=== PATIENT | female | born 1985 | race Caucasian/White ===

== ENCOUNTER 2019-03-11 14:32 | Emergency (ER) | payer SELFPAY ==
[~2019-03-11] VITALS: Ht 162.6 cm; Wt 63.5 kg
[~2019-03-11 14:32] MED LIST: ALBU90OI INH; ALBU90OI61 INH; Amoxicillin500 MG PO; CODGUAEL PO; Cyclobenzaprine5 MG PO; DOCU100 PO; HYDR1TAB94 PO; IBUP800 PO; METPRE4DP PO; Monodox100 MG PO; Mucinex600 MG PO; Naprosyn500 MG PO; PROCODE120 PO; Prednisone20 MG PO; Robaxin-750750 MG PO; SPACE CHAMBER1 EACH MC; Ultram50 MG PO; Ventolin/Prove6.7 GM INH; Verotin-Gr Cap1 EACH PO; Zithromax250 MG PO
[2019-03-11] MEDS ORDERED: CEPH500 PO (15:44)
[2019-03-11] MEDS ORDERED: Bactrim Ds Tab1 EACH PO (15:44)
== END 2019-03-11 15:49 | disposition home or self-care (01) ==
LOC: ER 14:32
DX: L02.412 Cutaneous abscess of left axilla (principal); L02.411 Cutaneous abscess of right axilla; F17.210 Nicotine dependence, cigarettes, uncomplicated
CPT/HCPCS: 99283

== ENCOUNTER 2022-05-30 21:06 | Emergency (ER) | payer OTHER ==
[~2022-05-30] VITALS: Ht 162.6 cm; Wt 54.4 kg
[~2022-05-30 21:06] MED LIST changes: +Bactrim Ds Tab1 EACH PO; +CEPH500 PO; +IBUP600 PO
== END 2022-05-30 22:17 | disposition home or self-care (01) ==
LOC: ER 21:06
DX: M25.561 Pain in right knee (principal); F17.200 Nicotine dependence, unspecified, uncomplicated
CPT/HCPCS: 99283

== ENCOUNTER 2022-07-26 06:14 | Emergency (ER) | payer OTHER ==
[~2022-07-26] VITALS: Ht 162.6 cm; Wt 56.7 kg
[2022-07-26 06:55] LABS: Source, Urine Clean Catch
[2022-07-26 06:58] LABS: Appearance, Urine Clear (Clear); Bilirubin, Urine Neg (Neg); Blood, Urine 2+ (Neg); Color, Urine Yellow (P-Yellow); Glucose Qualitative, Urine Neg (Neg); Ketones, Urine Neg (Neg); Leukocyte Esterase, Urine Neg (Neg); Nitrite, Urine Neg (Neg); Protein, Urine 1+ (Neg); Urobilinogen, Urine NORM (Normal)
[2022-07-26 07:37] LABS: White Blood Cells, Urine 0-2 /hpf (0-5)
[2022-07-26 07:38] LABS: Bacteria Rare /hpf; Mucus Light (0-Heavy); Squamous Epithelial Cells Few /hpf (Few)
== END 2022-07-26 09:00 | disposition left against medical advice (07) ==
LOC: ER 06:14
PROVIDERS: Orthopaedic Surgery
DX: M54.50 Low back pain, unspecified (principal); R31.9 Hematuria, unspecified; F17.210 Nicotine dependence, cigarettes, uncomplicated
CPT/HCPCS: 74176; 81001; 81025; J1885